=== PATIENT | male | born 1990 | race American Indian/Alaskan Native ===

== ENCOUNTER 2016-09-06 14:28 | Emergency (ER) | payer SELFPAY ==
[2016-09-06] MEDS ORDERED: TYLENOL PO ONE (14:42)
[2016-09-06 16:46] VITALS: BP 107/72
--- NOTE | 2016-09-06 17:44 | Emergency Department Report ---
- General Chief Complaint: Upper Respiratory Infection Stated Complaint: COLD SYMPTOMS Time Seen by Provider: 09/06/16 17:28 Source: patient Mode of arrival: Ambulatory Limitations: No Limitations - History of Present Illness Initial Comments: 26 y/o male with complain of nasal congestion and running fever with generalized body ache x 5 days .no prior medical treatment MD Complaint: fever, sore throat, nasal congestion Onset/Timin -: days(s) Severity: moderate Severity scale (0 -10): 6 Quality: aching Consistency: constant Improves With: nothing Worsens With: nothing Associated Symptoms: denies other symptoms - Related Data Previous Rx's Medication Instructions Recorded Last Taken Type Azithromycin [Zithromax] 250 mg PO DAILY #6 tablet 09/06/16 Unknown Rx Fluticasone [Flonase] 1 spray NS QDAY #1 bottle 09/06/16 Unknown Rx Ibuprofen [Motrin] 800 mg PO Q8HR PRN #15 tablet 09/06/16 Unknown Rx Allergies Allergy/AdvReac Type Severity Reaction Status Date / Time Penicillins Allergy Rash Verified 09/06/16 14:37 ED Review of Systems ROS: Stated complaint: COLD SYMPTOMS Other details as noted in HPI Constitutional: fever. denies: chills Eyes: denies: eye pain, eye discharge, vision change ENT: throat pain. denies: ear pain Respiratory: denies: cough, shortness of breath, wheezing Cardiovascular: denies: chest pain, palpitations Endocrine: no symptoms reported Gastrointestinal: denies: abdominal pain, nausea, diarrhea Genitourinary: denies: urgency, dysuria Musculoskeletal: denies: back pain, joint swelling, arthralgia Skin: denies: rash, lesions Neurological: denies: headache, weakness, paresthesias Psychiatric: denies: anxiety, depression Hematological/Lymphatic: denies: easy bleeding, easy bruising ED Past Medical Hx - Past Medical History Previous Medical History?: No - Surgical History Past Surgical History?: Yes Additional Surgical History: Adenoids removed - Social History Smoking Status: Never Smoker Substance Use Type: Alcohol - Medications Home Medications: Home Medications Medication Instructions Recorded Confirmed Last Taken Type Azithromycin [Zithromax] 250 mg PO DAILY #6 tablet 09/06/16 Unknown Rx Fluticasone [Flonase] 1 spray NS QDAY #1 bottle 09/06/16 Unknown Rx Ibuprofen [Motrin] 800 mg PO Q8HR PRN #15 tablet 09/06/16 Unknown Rx ED Physical Exam - General Limitations: No Limitations General appearance: alert, in no apparent distress - Head Head exam: Present: atraumatic, normocephalic - Eye Eye exam: Present: normal appearance - ENT ENT exam: Present: mucous membranes moist - Expanded ENT Exam Expanded TM/Canal exam: Mastoid Tenderness: Right TM, Left TM (frontal ) Throat exam: Positive: tonsillar erythema, tonsillomegaly, other (post nasal drip) - Neck Neck exam: Present: normal inspection - Respiratory Respiratory exam: Present: normal lung sounds bilaterally. Absent: respiratory distress, wheezes, rales - Cardiovascular Cardiovascular Exam: Present: regular rate, normal rhythm. Absent: systolic murmur, diastolic murmur, rubs, gallop - GI/Abdominal GI/Abdominal exam: Present: soft, normal bowel sounds - Rectal Rectal exam: Present: deferred - Extremities Exam Extremities exam: Present: normal inspection - Back Exam Back exam: Present: normal inspection - Neurological Exam Neurological exam: Present: alert, oriented X3 - Psychiatric Psychiatric exam: Present: normal affect, normal mood - Skin Skin exam: Present: warm, dry, intact, normal color. Absent: rash - Other Other exam information: nasal turbinate erythema with congestion noted ED Course Vital Signs 09/06/16 09/06/16 09/06/16 14:37 14:45 16:45 Temperature 102.9 F H 100.0 F H Pulse Rate 81 97 H Respiratory 20 20 20 Rate Blood Pressure 124/82 Blood Pressure 107/72 [Right] O2 Sat by Pulse 97 95 Oximetry ED Medical Decision Making - Medical Decision Making sinusitis negative flu and rapid strep Critical care attestation.: If time is entered above; I have spent that time in minutes in the direct care of this critically ill patient, excluding procedure time. ED Disposition Clinical Impression: Sinusitis Qualifiers: Sinusitis location: frontal Chronicity: acute Recurrence: not specified as recurrent Qualified Code(s): J01.10 - Acute frontal sinusitis, unspecified Disposition: DISCHARGED TO HOME OR SELFCARE Is pt being admited?: No Does the pt Need Aspirin: No Condition: Stable Instructions: Sinusitis (ED) Prescriptions: Fluticasone [Flonase] 1 spray NS QDAY #1 bottle Ibuprofen [Motrin] 800 mg PO Q8HR PRN #15 tablet PRN Reason: Pain Azithromycin [Zithromax] 250 mg PO DAILY #6 tablet Forms: Work/School Release Form(ED) Time of Disposition: 18:04
== END 2016-09-06 18:13 | disposition home or self-care (01) ==
LOC: ED 14:28
DX: J01.10 Acute frontal sinusitis, unspecified (principal); Z88.0 Allergy status to penicillin
CPT/HCPCS: 87116; 87400; 87430; 99282